=== PATIENT | male | born 2000 | race American Indian/Alaskan Native ===

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

== ENCOUNTER 2019-08-28 10:13 | Emergency (ER) | payer MEDICAID ==
[2019-08-28] MEDS ORDERED: ZIPRASIDONE MESYLATE 20 MG VIAL IM ONE ×3 (10:36→19:27)
--- NOTE | 2019-08-28 10:48 | Emergency Department Report ---
ED Psych HPI - General Chief Complaint: Altered Mental Status Stated Complaint: EVAL Time Seen by Provider: 08/28/19 10:39 Source: EMS Mode of arrival: Stretcher - History of Present Illness Initial Comments: John is a 19 yo male with hx of autism, intellectual/cognitive delay who presents to the ED for aggressive behavior and agitation at home. His mother states that he is throwing objects at home. His mother has required medical care in our facility. Consequently, John has not been receiving his medications. He is currently agitated. He is a poor historian. He does not answer direct questions. -: days(s) (3) History of same: Yes Quality: constant Improves With: none Worsens With: none Context: not taking psychiatric Treatments Prior to Arrival: none - Related Data Home Medications Medication Instructions Recorded Confirmed Last Taken Divalproex Dr [Depakote Dr] 1,000 mg PO QHS 06/20/17 06/20/17 07/15/17 Divalproex Sodium [Divalproex 250 mg PO QAM 06/20/17 07/16/17 07/16/17 04:30 Sodium ER] Imipramine HCl 10 mg PO QHS 06/20/17 06/20/17 07/15/17 LORazepam [Ativan] 1 mg PO TID PRN 06/20/17 07/16/17 07/16/17 04:30 Quetiapine Fumarate [QUEtiapine 400 mg PO QHS 06/20/17 06/20/17 07/15/17 Fumarate] cloNIDine [Catapres] 0.3 mg PO QHS 06/20/17 06/20/17 07/15/17 diphenhydrAMINE/ZINC 2% [Banophen 1 dose TP DAILY 06/20/17 06/20/17 07/15/17 Anti-Itch] traZODone [Desyrel] 300 mg PO QHS PRN 06/20/17 06/20/17 07/15/17 Benztropine [Cogentin] 1 mg PO QHS 07/16/17 07/16/17 07/15/17 diphenhydrAMINE [Benadryl CAP] 50 mg PO QHS PRN 07/16/17 07/16/17 07/15/17 Allergies Allergy/AdvReac Type Severity Reaction Status Date / Time shellfish derived Allergy Hives Verified 06/20/17 15:31 ED Review of Systems ROS: Stated complaint: MH EVAL Other details as noted in HPI Comment: Unobtainable due to pts medical conditions (cognitive/intellectual delay severe autism) ED Past Medical Hx - Past Medical History Previous Medical History?: Yes Hx Hypertension: No Hx HIV: No Additional medical history: Autism, ADHD - Surgical History Past Surgical History?: No - Social History Smoking Status: Unknown if ever smoked Substance Use Type: None - Medications Home Medications: Home Medications Medication Instructions Recorded Confirmed Last Taken Type Divalproex Dr [Depakote Dr] 1,000 mg PO QHS 06/20/17 06/20/17 07/15/17 History Divalproex Sodium [Divalproex 250 mg PO QAM 06/20/17 07/16/17 07/16/17 04:30 History Sodium ER] Imipramine HCl 10 mg PO QHS 06/20/17 06/20/17 07/15/17 History LORazepam [Ativan] 1 mg PO TID PRN 06/20/17 07/16/17 07/16/17 04:30 History Quetiapine Fumarate [QUEtiapine 400 mg PO QHS 06/20/17 06/20/17 07/15/17 History Fumarate] cloNIDine [Catapres] 0.3 mg PO QHS 06/20/17 06/20/17 07/15/17 History diphenhydrAMINE/ZINC 2% [Banophen 1 dose TP DAILY 06/20/17 06/20/17 07/15/17 History Anti-Itch] traZODone [Desyrel] 300 mg PO QHS PRN 06/20/17 06/20/17 07/15/17 History Benztropine [Cogentin] 1 mg PO QHS 07/16/17 07/16/17 07/15/17 History diphenhydrAMINE [Benadryl CAP] 50 mg PO QHS PRN 07/16/17 07/16/17 07/15/17 History ED Physical Exam - General Limitations: Other (autism, cognitive delay) General appearance: alert, in no apparent distress, other (loud agitated) - Head Head exam: Present: atraumatic, normocephalic - Eye Eye exam: Present: normal appearance - ENT ENT exam: Present: mucous membranes moist - Neck Neck exam: Present: normal inspection, full ROM - Respiratory Respiratory exam: Present: normal lung sounds bilaterally. Absent: respiratory distress, wheezes, rales, rhonchi - Cardiovascular Cardiovascular Exam: Present: regular rate, normal rhythm, normal heart sounds. Absent: systolic murmur, diastolic murmur, rubs, gallop - GI/Abdominal GI/Abdominal exam: Present: soft, normal bowel sounds. Absent: distended, tenderness, guarding, rebound - Extremities Exam Extremities exam: Present: normal inspection - Neurological Exam Neurological exam: Present: normal gait - Psychiatric Psychiatric exam: Present: agitated - Skin Skin exam: Present: warm, dry, intact, normal color. Absent: rash ED Course Vital Signs 08/28/19 08/28/19 15:35 15:39 Temperature 97.6 F Pulse Rate 97 H Respiratory 20 20 Rate Blood Pressure 116/74 [Left] O2 Sat by Pulse 99 99 Oximetry ED Medical Decision Making - Lab Data Result diagrams: 08/28/19 10:50 08/28/19 10:50 - Medical Decision Making John has hx of autism and cognitive delay who presents with agitation and aggressive behavior. According to our psychiatric team, his mother has schizophrenia. She required recent evaluation for acute psychosis. It is a concern that mother is not able to care for John consistently is she is not stable from a mental care standpoint. Awaiting psychiatric and case management consultations. He will need a sufficient care plan for discharge. Upon arrival, John required chemical restraint and soft wrists physical restraint for aggressive and erratic behavior to ensure his safety and the safety of his mother and staff members who have tried to keep him calm and in one physical location. John is medically cleared for further care. Our nursing body service team member spoke with grandfather who will excelsior picker John moise 11:30 PM. He is aware that John's mother is unable to take care of him. Critical care attestation.: If time is entered above; I have spent that time in minutes in the direct care of this critically ill patient, excluding procedure time. ED Disposition Clinical Impression: Autism, Aggressive behavior Disposition: DC-01 TO HOME OR SELFCARE Is pt being admited?: No Does the pt Need Aspirin: No Condition: Stable Additional Instructions: Please return to the ER if you have any questions or concerns. Referrals: SONIA GUERRERO MD [Staff Physician] - 3-5 Days
[2019-08-28 11:13] LABS: Hemoglobin 11.6 gm/dl (11.8-15.2); Mean Corpuscular HGB Conc 33 % (32-34); Mean Corpuscular Volume 102 fl (84-94); Platelet Count 294 K/mm3 (140-440); Red Blood Count 3.42 M/mm3 (3.65-5.03); Red Cell Distribution Width 12.8 % (13.2-15.2)
[2019-08-28 11:35] LABS: Alanine Aminotransferase 19 units/L (7-56); Albumin 3.4 g/dL (3.9-5); BUN/Creatinine Ratio 23; Blood Urea Nitrogen 30 mg/dL (9-20); Calcium 9.1 mg/dL (8.4-10.2); Hemolysis Index 10
[2019-08-28 13:57] LABS: Anisocytosis 1+; Basophils % (Manual) 0 % (0.0-1.8); Eosinophils % (Manual) 0 % (0.0-4.3); Platelet Estimate Consistent w Auto; Total Cells Counted 100
[2019-08-28] MEDS ORDERED: LORazepam 2 MG/ML VIAL IM STA ×2 (16:21→16:26)
[2019-08-28 16:59] LABS: Bilirubin,Urine NEG (Negative); Blood,Urine NEG (Negative); Color,Urine Yellow (Yellow); Hyaline Casts,Urine 1 /LPF; Mucus,Urine FEW /HPF; Protein,Urine <15 mg/dL mg/dL (Negative); Urobilinogen,Urine < 2.0 mg/dL (<2.0)
[2019-08-28 17:07] LABS: Amphetamine Screen,Urine PRESUMPTIVE NEGATIVE; Cannabinoid Screen,Urine PRESUMPTIVE NEGATIVE; Cocaine Screen,Urine PRESUMPTIVE NEGATIVE; Methadone Screen,Urine PRESUMPTIVE NEGATIVE; Opiate Screen,Urine PRESUMPTIVE NEGATIVE
[2019-08-28] MEDS ORDERED: diphenhydrAMINE 50 MG/ML VIAL IM STA (17:10)
[2019-08-28 17:19] LABS: Benzodiazepines Screen,Urine PRESUMPTIVE POSITIVE
[2019-08-28] MEDS ORDERED: WATER FOR INJ Sterile (PF) 10 ML ONE (19:32)
[2019-08-29 00:44] VITALS: BP 109/71
== END 2019-08-29 00:45 | disposition home or self-care (01) ==
LOC: ED 10:13 → EEVIPCON 10:13 → ED 08-29 00:45
DX: F84.0 Autistic disorder (principal); F90.9 Attention-deficit hyperactivity disorder, unspecified type; R45.1 Restlessness and agitation; F91.1 Conduct disorder, childhood-onset type; Z79.899 Other long term (current) drug therapy
CPT/HCPCS: 36415; 80053; 80307; 81001; 82962; 85007; 85025; 96372; 99284; J1200; J2060; J3486; 80320; G0480

== ENCOUNTER 2021-07-18 11:52 | Outpatient (CLI) | payer MEDICAID ==
--- NOTE | 2021-07-18 12:40 | XRay Report ---
CHEST 2 VIEWS INDICATION / CLINICAL INFORMATION: TACHYCARDIA,UNSPECIFIED. COMPARISON: None available. FINDINGS: SUPPORT DEVICES: None. HEART / MEDIASTINUM: No significant abnormality. LUNGS / PLEURA: No significant pulmonary or pleural abnormality. No pneumothorax. ADDITIONAL FINDINGS: No significant additional findings. IMPRESSION: 1. No acute findings. Signer Name: Jean-Claude Jackson MD Signed: 07/18/2021 12:35 PM Workstation Name: [id number]
== END 2021-07-18 11:53 | disposition home or self-care (01) ==
LOC: XRAY 11:52
PROVIDERS: ATTEND Internal Medicine
DX: R00.0 Tachycardia, unspecified (principal)
CPT/HCPCS: 71046